=== PATIENT | female | born 1970 | race Caucasian/White ===

== ENCOUNTER 2017-08-25 20:45 | Emergency (ER) | payer MEDICAID ==
[2017-08-25] MEDS ORDERED: predniSONE 20 MG Tab PO ONE (20:46)
[2017-08-25] MEDS ORDERED: Ketorolac 30 MG/ML SDV IVPUSH ONE (21:05)
[2017-08-25] MEDS ORDERED: methylPREDNISolone Sodium Succinate 125 MG/2 ML SDV IVPUSH ONE (21:05)
--- NOTE | 2017-08-25 21:11 | EDM.PDOC ---
ED HPI GENERAL MEDICAL PROBLEM - General Chief Complaint: Back Pain or Injury Stated Complaint: BACK PAIN Time Seen by Provider: 08/25/17 20:50 Source of Information: Reports: Patient History Limitations: Reports: No Limitations - History of Present Illness INITIAL COMMENTS - FREE TEXT/NARRATIVE: 47 YO WF presents to ER complaining of 5 days of left sided low back pain. Pt reports she has been doing a lot of sitting in the car recently and developed left back and buttock pain. Pt reports pain became worse over the last few days and states she can't sit due to discomfort. Pt states pain now radiates down her left leg. Pt denies any weakness or numbness or saddle parathesias. Pt denies any injury, no fever/chills, no nausea/vomiting and no dysuria or frequency/urgency. Onset Date: 08/21/17 Duration: Day(s): (5) Location: Reports: Back Quality: Reports: Ache Severity: Moderate Improves with: Reports: Rest Worsens with: Reports: Movement Associated Symptoms: Reports: No Other Symptoms - Related Data Allergies Allergy/AdvReac Type Severity Reaction Status Date / Time No Known Allergies Allergy Verified 04/08/15 23:45 Home Meds: Home Meds Cyclobenzaprine [Flexeril] 10 mg PO TID PRN 04/08/15 [History] LORazepam 0.5 mg PO DAILY 04/08/15 [History] Pantoprazole Sodium [Protonix] 40 mg PO DAILY 04/08/15 [History] Venlafaxine [Effexor] 04/09/15 [History] Cyclobenzaprine [Flexeril] 10 mg PO TID PRN #15 tab 08/25/17 [Rx] Hydrocodone/Acetaminophen [Hydrocodon-Acetaminophn 10-325] 1 tab PO Q4H PRN #6 tablet 08/25/17 [Rx] Prednisone [IJD: predniSONE] 20 mg PO WITHBREAKFAST #15 tab 08/25/17 [Rx] Past Medical History Other OB/BYN History: only has one falopian tube Social & Family History - Tobacco Use Smoking Status *Q: Never Smoker - Living Situation & Occupation Living situation: Reports: with Significant Other Occupation: Unemployed ED ROS GENERAL - Review of Systems Review Of Systems: See Below Constitutional: Reports: No Symptoms HEENT: Reports: No Symptoms Respiratory: Reports: No Symptoms Cardiovascular: Reports: No Symptoms Endocrine: Reports: No Symptoms GI/Abdominal: Reports: No Symptoms : Reports: No Symptoms Musculoskeletal: Reports: Back Pain Skin: Reports: No Symptoms Neurological: Reports: No Symptoms Psychiatric: Reports: No Symptoms Hematologic/Lymphatic: Reports: No Symptoms Immunologic: Reports: No Symptoms ED EXAM,LOWER BACK PAIN/INJURY - Physical Exam Exam: See Below Exam Limited By: No Limitations General Appearance: Alert, WD/WN, Mild Distress Throat/Mouth: Normal Inspection, Normal Lips, Normal Teeth, Normal Gums, Normal Oropharynx, Normal Voice, No Airway Compromise Head: Atraumatic, Normocephalic Neck: Normal Inspection, Supple, Non-Tender, Full Range of Motion Respiratory/Chest: No Respiratory Distress, Lungs Clear, Normal Breath Sounds, No Accessory Muscle Use, Chest Non-Tender Cardiovascular: Normal Peripheral Pulses, Regular Rate, Rhythm, No Edema, No Gallop, No JVD, No Murmur, No Rub GI/Abdominal: Normal Bowel Sounds, Soft, Non-Tender, No Organomegaly, No Distention, No Abnormal Bruit, No Mass Back Exam: Muscle Spasm, Paraspinal Tenderness. No: CVA Tenderness (L), CVA Tenderness (R), Vertebral Tenderness Extremities: Normal Inspection, Normal Range of Motion, Non-Tender, No Pedal Edema, Normal Capillary Refill Neurological: Alert, Normal Mood/Affect, Normal Dorsiflexion, CN II-XII Intact, Normal Plantar Flexion, Normal Gait, Normal Reflexes, No Motor/Sensory Deficits , Oriented x 3 Psychiatric: Normal Affect, Normal Mood Skin Exam: Warm, Dry, Intact, Normal Color, No Rash Lymphatic: No Adenopathy Course - Orders/Labs/Meds Orders: Active Orders 24 hr Category Date Time Status Lumbar Spine 2 or 3V [CR] Routine Exams 08/25/17 22:00 Taken Acetaminophen/HYDROcodone [Ariel 325-10 MG] Med 08/25/17 21:18 Ordered 1 tab PO Q4H PRN Diazepam [Valium] Med 08/25/17 21:45 Once 5 mg IVPUSH ONETIME ONE predniSONE Med 08/26/17 08:00 Ordered 20 mg PO WITHBREAKFAST Medication Orders Hydrocodone Bitart/Acetaminophen (Ariel 325-10 Mg) 1 tab PO Q4H PRN PRN Reason: Pain Prednisone (Prednisone) 20 mg PO WITHBREAKFAST JENNIFER Stop: 08/31/17 08:01 Meds: Medications Generic Name Dose Route Start Last Admin Trade Name Freq PRN Reason Stop Dose Admin Hydrocodone Bitart/Acetaminophen 1 tab 08/25/17 21:18 Ariel 325-10 Mg PO Q4H PRN Pain Prednisone 20 mg 08/26/17 08:00 Prednisone PO 08/31/17 08:01 WITHBREAKFAST JENNIFER Discontinued Medications Generic Name Dose Route Start Last Admin Trade Name Freq PRN Reason Stop Dose Admin Diazepam 5 mg 08/25/17 21:05 08/25/17 21:10 Valium IVPUSH 08/25/17 21:06 5 mg ONETIME ONE Administration Hydromorphone HCl 1 mg 08/25/17 21:33 Dilaudid IVPUSH 08/25/17 21:34 ONETIME ONE Hydromorphone HCl Confirm 08/25/17 21:34 Dilaudid Administered 08/25/17 21:35 Dose 1 mg .ROUTE .STK-MED ONE Ketorolac Tromethamine 30 mg 08/25/17 21:05 08/25/17 21:10 Toradol IVPUSH 08/25/17 21:06 30 mg ONETIME ONE Administration Methylprednisolone Sodium Succinate 125 mg 08/25/17 21:05 08/25/17 21:15 Solu-Medrol IVPUSH 08/25/17 21:06 125 mg ONETIME ONE Administration - Radiology Interpretation Free Text/Narrative:: lumbar spine- NAD Departure - Departure Time of Disposition: 21:45 Disposition: Home, Self-Care 01 Condition: Good Clinical Impression: Sciatica Qualifiers: Laterality: left Qualified Code(s): M54.32 - Sciatica, left side - Discharge Information Prescriptions: Cyclobenzaprine [Flexeril] 10 mg PO TID PRN #15 tab PRN Reason: Muscle Spasm Hydrocodone/Acetaminophen [Hydrocodon-Acetaminophn 10-325] 1 tab PO Q4H PRN #6 tablet PRN Reason: Pain Prednisone [IJD: predniSONE] 20 mg PO WITHBREAKFAST #15 tab Instructions: Sciatica, [id number] Referrals: Kylie Arroyo, PHYSICIAN SCRIBE [Primary Care Provider] - Forms: ED Department Discharge - My Orders Last 24 Hours: My Active Orders 08/25/17 21:18 Acetaminophen/HYDROcodone [Ariel 325-10 MG] 1 tab PO Q4H PRN 03/24/18 21:45 Diazepam [Valium] 5 mg IVPUSH ONETIME ONE 08/25/17 22:00 Lumbar Spine 2 or 3V [CR] Routine 08/26/17 08:00 predniSONE 20 mg PO WITHBREAKFAST - Assessment/Plan Last 24 Hours: My Active Orders 08/25/17 21:18 Acetaminophen/HYDROcodone [Ariel 325-10 MG] 1 tab PO Q4H PRN 08/25/17 21:45 Diazepam [Valium] 5 mg IVPUSH ONETIME ONE 08/25/17 22:00 Lumbar Spine 2 or 3V [CR] Routine 08/26/17 08:00 predniSONE 20 mg PO WITHBREAKFAST Assessment:: 1. acute sciatica Plan: 1. discharge home 2. prednisone 60mg PO QD x 5 days 3. hydrocodone 10/325mg PO Q6 PRN #10 4. flexril 10mg PO TID PRN #15 5. follow up with PCP for further evaluation and treatment 6. return to ER for worsening symptoms
[2017-08-25] MEDS ORDERED: Cyclobenzaprine 10 MG Tab ONE ×2 (21:15→22:05)
[2017-08-25] MEDS ORDERED: Acetaminophen/HYDROcodone 325-10 MG Tab PO PRN (21:18)
[2017-08-25] MEDS ORDERED: HYDROmorphone 1 MG/ML Syringe IVPUSH ONE (21:33)
[2017-08-25] MEDS ORDERED: HYDROmorphone 1 MG/ML Syringe ONE (21:34)
[2017-08-25] MEDS ORDERED: predniSONE 20 MG Tab ONE (21:46)
[2017-08-26 01:59] VITALS: BP 150/74
[2017-08-26] MEDS ORDERED: predniSONE 20 MG Tab PO SCH (08:00)
== END 2017-08-25 22:20 | disposition home or self-care (01) ==
LOC: KA.ED 20:45
DX: M54.32 Sciatica, left side (principal); Z79.899 Other long term (current) drug therapy
CPT/HCPCS: 72100; 96374; 96375; 96376; 99283; A9270-GY; J1170; J1885; J2930; J3360

== ENCOUNTER 2018-12-10 17:43 | Emergency (ER) | payer MEDICAID ==
[2018-12-10] MEDS ORDERED: Sodium Chloride 0.9% 10 ML Syringe FLUSH PRN (18:07)
[2018-12-10] MEDS ORDERED: Metoclopramide 10 MG/2 ML SDV IVPUSH ONE (18:28)
[2018-12-10] MEDS ORDERED: diphenhydrAMINE 50 MG/ML SDV IVPUSH ONE (18:28)
--- NOTE | 2018-12-10 18:47 | EDM.PDOC ---
ED HPI GENERAL MEDICAL PROBLEM - General Chief Complaint: Headache Stated Complaint: HEADACHE Time Seen by Provider: 12/10/18 18:05 Source of Information: Reports: Patient History Limitations: Reports: No Limitations - History of Present Illness INITIAL COMMENTS - FREE TEXT/NARRATIVE: 48 YO WF presents to ER with complaints of intermittent headaches x 1month. Pt reports headaches began as mild in character left sided with associated dizziness, nausea, ataxia and minor visual changes. Pt with history of lupus. Pt was seen by PCP yesterday and had labs drawn- FRANCIS, ESR, CBC, CMP- all WNL. Pt was scheduled for MRI of brain for tomorrow in [place]. Pt called clinic today complaining of SANCHEZ getting worse prompting her to be recommended for ER evaluation. Pt denies any headache history, no history of MS or giant cell arteritis. Duration: Week(s): (4) Location: Reports: Head Quality: Reports: Ache Severity: Moderate Improves with: Reports: None Worsens with: Reports: None Associated Symptoms: Reports: Headaches, Loss of Appetite, Nausea/Vomiting. Denies: Confusion, Fever/Chills, Rash, Seizure, Weakness Treatments SUGARCANE RESEARCH TECHNICIAN: Reports: Acetaminophen, NSAIDS Other Treatments SUGARCANE RESEARCH TECHNICIAN: Toradol 30 IM - Related Data Allergies Allergy/AdvReac Type Severity Reaction Status Date / Time No Known Allergies Allergy Verified 12/10/18 17:51 Home Meds: Home Meds Venlafaxine [Effexor] 150 mg PO DAILY 04/09/15 [History] Gabapentin [Neurontin] 400 mg PO BEDTIME 08/26/17 [History] Levothyroxine Sodium 88 mcg PO DAILY 08/26/17 [History] tiZANidine [Zanaflex] 4 mg PO BEDTIME 08/26/17 [History] Methocarbamol [Robaxin] 500 mg PO Q6HR PRN 12/10/18 [History] Past Medical History HEENT History: Reports: Impaired Vision SAFETY TEACHER History: Reports: Other SAFETY TEACHER History: only has one falopian tube Musculoskeletal History: Reports: Fibromyalgia, Other (See Below) Other Musculoskeletal History: arm fracture Neurological History: Reports: Other (See Below) Other Neuro History: Lupus Psychiatric History: Reports: Anxiety, Depression Endocrine/Metabolic History: Reports: Hypothyroidism Social & Family History - Tobacco Use Smoking Status *Q: Never Smoker Second Hand Smoke Exposure: No - Caffeine Use Caffeine Use: Reports: Soda Other Caffeine Use: Pt reports drinking one diet soda/day - Recreational Drug Use Recreational Drug Use: No - Living Situation & Occupation Living situation: Reports: with Significant Other Occupation: Unemployed ED ROS GENERAL - Review of Systems Review Of Systems: See Below Constitutional: Reports: No Symptoms HEENT: Reports: Vision Change. Denies: Hearing Loss, Vertigo Respiratory: Reports: No Symptoms Cardiovascular: Reports: No Symptoms Endocrine: Reports: No Symptoms GI/Abdominal: Reports: Nausea : Reports: No Symptoms Musculoskeletal: Reports: No Symptoms Skin: Reports: No Symptoms Neurological: Reports: Dizziness, Headache, Tingling. Denies: Confusion, Numbness, Paresthesia, Pre-Existing Deficit, Seizure, Syncope, Trouble Speaking , Difficulty Walking, Weakness, Change in Speech Psychiatric: Reports: No Symptoms Hematologic/Lymphatic: Reports: No Symptoms Immunologic: Reports: No Symptoms - Physical Exam Exam: See Below Exam Limited By: No Limitations General Appearance: Alert, WD/WN, No Apparent Distress Eye Exam: Bilateral Eye: EOMI, PERRL Ears: Normal External Exam, Normal Canal, Hearing Grossly Normal, Normal TMs Nose: Normal Inspection, Normal Mucosa, No Blood Throat/Mouth: Normal Inspection, Normal Lips, Normal Teeth, Normal Gums, Normal Oropharynx, Normal Voice, No Airway Compromise Head Exam: Atraumatic, Normocephalic Neck: Normal Inspection, Supple, Non-Tender, Full Range of Motion Respiratory/Chest: No Respiratory Distress, Lungs Clear, Normal Breath Sounds, No Accessory Muscle Use, Chest Non-Tender Cardiovascular: Normal Peripheral Pulses, Regular Rate, Rhythm, No Edema, No Gallop, No JVD, No Murmur, No Rub GI/Abdominal: Normal Bowel Sounds, Soft, Non-Tender, No Organomegaly, No Distention, No Abnormal Bruit, No Mass Neuro Exam (Abbreviated): Alert, Oriented, CN II-XII Intact, Normal Cognition, Normal Reflexes, No Motor/Sensory Deficits, Abnormal Gait Back Exam: Normal Inspection, Full Range of Motion, NT Extremities: Normal Inspection, Normal Range of Motion, Non-Tender, No Pedal Edema, Normal Capillary Refill Psychiatric: Normal Affect, Normal Mood Skin Exam: Warm, Dry, Intact, Normal Color, No Rash Course - Vital Signs Last Recorded V/S: Last Vital Signs Temp 36.8 C 12/10/18 17:56 Pulse 82 12/10/18 17:56 Resp 16 12/10/18 17:56 BP 140/92 H 12/10/18 17:56 Pulse Ox 95 12/10/18 17:56 - Orders/Labs/Meds Orders: Active Orders 24 hr Category Date Time Status Peripheral IV Care [RC] . DIRECTED Care 12/10/18 18:07 Active Sodium Chloride 0.9% [Saline Flush] Med 12/10/18 18:07 Active 10 ml FLUSH Q8HR PRN Peripheral IV Insertion Adult [OM.PC] Routine Oth 12/10/18 18:07 Ordered Medication Orders Sodium Chloride (Saline Flush) 10 ml FLUSH Q8HR PRN PRN Reason: keep vein open Last Admin: 12/10/18 18:44 Dose: 10 ml Meds: Medications Generic Name Dose Route Start Last Admin Trade Name Freq PRN Reason Stop Dose Admin Sodium Chloride 10 ml 12/10/18 18:07 12/10/18 18:44 Saline Flush FLUSH 10 ml Q8HR PRN Administration keep vein open Discontinued Medications Generic Name Dose Route Start Last Admin Trade Name Freq PRN Reason Stop Dose Admin Diphenhydramine HCl 50 mg 12/10/18 18:28 12/10/18 18:36 Benadryl IVPUSH 12/10/18 18:29 50 mg ONETIME ONE Administration Metoclopramide HCl 10 mg 12/10/18 18:28 12/10/18 18:37 Reglan IVPUSH 12/10/18 18:29 10 mg ONETIME ONE Administration - Radiology Interpretation Free Text/Narrative:: CT Head- NAD; partially empty sella of no clinical significance. Departure - Departure Time of Disposition: 19:21 Disposition: Home, Self-Care 01 Condition: Good Clinical Impression: Headache Qualifiers: Headache type: unspecified Headache chronicity pattern: acute headache Intractability: not intractable Qualified Code(s): R51 - Headache - Discharge Information Instructions: General Headache Without Cause, [id number] Referrals: Kylie Arroyo LEATHER WORKER [Primary Care Provider] - Forms: ED Department Discharge Additional Instructions: 1. discharge home 2. MRI Brain tomorrow 12/11/2018 10:30am 3. follwo up in [facility]- 12/13/2018 for MRI results and possible neuro referral 4. return to ER for worsening symptoms - My Orders Last 24 Hours: My Active Orders 12/10/18 18:07 Peripheral IV Care [RC] . DIRECTED Sodium Chloride 0.9% [Saline Flush] 10 ml FLUSH Q8HR PRN Peripheral IV Insertion Adult [OM.PC] Routine - Assessment/Plan Last 24 Hours: My Active Orders 12/10/18 18:07 Peripheral IV Care [RC] . DIRECTED Sodium Chloride 0.9% [Saline Flush] 10 ml FLUSH Q8HR PRN Peripheral IV Insertion Adult [OM.PC] Routine Assessment:: 1. left sided Headache- improved Plan: 1. discharge home 2. MRI Brain tomorrow 12/11/2018 10:30am 3. follwo up in [facility]- 12/13/2018 for MRI results and possible neuro referral 4. return to ER for worsening symptoms
--- NOTE | 2018-12-10 19:02 | CT ---
[id number] CT/CT Head WO IV EXAM: CT Head WO IV CLINICAL DATA: HEADACHE COMPARISON STUDY: None FINDINGS: No intracranial hemorrhage, extra-axial fluid collection, mass, or acute ischemia. Partially empty sella, uncertain clinical significance or etiology. Findings can be incidental are seen with benign intracranial hypertension. As an isolated finding, finding is most commonly of no clinical significance. No hydrocephalus. Paranasal sinuses and mastoid air cells are clear. IMPRESSION: No acute findings in the brain. Partially empty sella, described above. Yonis Hendricks MD 12/10/18 [id number] Thank you for allowing us to participate in the care of your patient.
[2018-12-10 19:43] VITALS: BP 117/60; PULSE 61
== END 2018-12-10 19:40 | disposition home or self-care (01) ==
LOC: KA.ED 17:43
DX: R51 Headache (principal); F41.9 Anxiety disorder, unspecified; F32.9 Major depressive disorder, single episode, unspecified; E03.9 Hypothyroidism, unspecified; Z79.899 Other long term (current) drug therapy
CPT/HCPCS: 70450; 96374; 96375; 99284; J1200; J2765

== ENCOUNTER 2019-01-14 06:25 | Emergency (ER) | payer MEDICAID ==
[2019-01-14 06:52] VITALS: BP 123/76; PULSE 88
[2019-01-14] MEDS ORDERED: Ketorolac 30 MG/ML SDV IVPUSH ONE (07:05)
[2019-01-14] MEDS ORDERED: Sodium Chloride 0.9% 1,000 ML IV ONE (07:05)
[2019-01-14] MEDS ORDERED: Ondansetron 4 MG/2 ML SDV IVPUSH ONE (07:05)
[2019-01-14] MEDS ORDERED: Sodium Chloride 0.9% 10 ML Syringe FLUSH PRN (07:05)
--- NOTE | 2019-01-14 07:22 | EDM.PDOC ---
ED HPI GENERAL MEDICAL PROBLEM - General Chief Complaint: Abdominal Pain Stated Complaint: right rib/upper abd pain Time Seen by Provider: 01/14/19 06:45 Source of Information: Reports: Patient History Limitations: Reports: No Limitations - History of Present Illness INITIAL COMMENTS - FREE TEXT/NARRATIVE: 48 YO WF presents to ER complaining of RUQ pain which began yesterday. Pt reports pain is constant and worse with deep inspiration. Pt denies shortness of breath or chest pain. Pt reports remote history of cholecystectomy (20+ years ago). Pt denies recent URI- no cough/congestion/fevers/hemoptysis. Pt reports regular bowel movements without increased bowel gas. Pt denies any radiating pain, no rash, dizziness. Onset Date: 01/13/19 Duration: Day(s): (2) Location: Reports: Abdomen Quality: Reports: Pressure, Sharp Severity: Moderate Improves with: Reports: Rest Worsens with: Reports: Breathing, Movement Associated Symptoms: Reports: No Other Symptoms, Nausea/Vomiting Right Upper Abdomen Pain Score (Numeric/FACES): 10 - Related Data Allergies Allergy/AdvReac Type Severity Reaction Status Date / Time No Known Allergies Allergy Verified 12/10/18 17:51 Home Meds: Home Meds Venlafaxine [Effexor] 150 mg PO DAILY 04/09/15 [History] Gabapentin [Neurontin] 400 mg PO BEDTIME 08/26/17 [History] Levothyroxine Sodium 88 mcg PO DAILY 08/26/17 [History] tiZANidine [Zanaflex] 4 mg PO BEDTIME 08/26/17 [History] Methocarbamol [Robaxin] 500 mg PO Q6HR PRN 12/10/18 [History] Cephalexin [Keflex] 500 mg PO Q6HR #40 capsule 01/14/19 [Rx] Pantoprazole Sodium [Protonix] 40 mg PO DAILY 01/14/19 [History] SUMAtriptan [Imitrex] 25 mg PO ASDIRECTED PRN 01/14/19 [History] Simethicone 125 mg PO TID #30 tab.chew 01/14/19 [Rx] Past Medical History HEENT History: Reports: Impaired Vision 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: only has one falopian tube Musculoskeletal History: Reports: Fibromyalgia, Other (See Below) Other Musculoskeletal History: left arm fracture, ORIF Neurological History: Reports: Other (See Below) Other Neuro History: Lupus Psychiatric History: Reports: Anxiety, Depression Endocrine/Metabolic History: Reports: Hypothyroidism - Past Surgical History GI Surgical History: Reports: Cholecystectomy Musculoskeletal Surgical History: Reports: Arthroscopic Knee Social & Family History - Tobacco Use Smoking Status *Q: Former Smoker Used Tobacco, but Quit: Yes Month/Year Tobacco Last Used: "awhile." - Caffeine Use Caffeine Use: Reports: Soda Other Caffeine Use: Pt reports drinking one diet soda/day - Living Situation & Occupation Living situation: Reports: with Significant Other Occupation: Unemployed ED ROS GENERAL - Review of Systems Review Of Systems: See Below Constitutional: Reports: No Symptoms HEENT: Reports: No Symptoms Respiratory: Reports: No Symptoms Cardiovascular: Reports: No Symptoms Endocrine: Reports: No Symptoms GI/Abdominal: Reports: Abdominal Pain, Nausea : Reports: No Symptoms Musculoskeletal: Reports: No Symptoms Skin: Reports: No Symptoms Neurological: Reports: No Symptoms Psychiatric: Reports: No Symptoms Hematologic/Lymphatic: Reports: No Symptoms Immunologic: Reports: No Symptoms ED EXAM, GI/ABD - Physical Exam Exam: See Below Exam Limited By: No Limitations General Appearance: Alert, WD/WN, No Apparent Distress Head: Atraumatic, Normocephalic Neck: Normal Inspection, Supple, Non-Tender, Full Range of Motion Respiratory/Chest: No Respiratory Distress, Lungs Clear, Normal Breath Sounds, No Accessory Muscle Use, Chest Non-Tender Cardiovascular: Normal Peripheral Pulses, Regular Rate, Rhythm, No Edema, No Gallop, No JVD, No Murmur, No Rub GI/Abdominal Exam: Normal Bowel Sounds, Soft, No Organomegaly, No Distention, No Abnormal Bruit, No Mass, Pelvis Stable, Tender (RUQ) Back Exam: Normal Inspection, Full Range of Motion, NT Extremities: Normal Inspection, Normal Range of Motion, Non-Tender, Normal Capillary Refill, No Pedal Edema Neurological: Alert, Oriented, CN II-XII Intact, Normal Cognition, Normal Gait, Normal Reflexes, No Motor/Sensory Deficits Psychiatric: Normal Affect, Normal Mood Skin Exam: Warm, Dry, Intact, Normal Color, No Rash Lymphatic: No Adenopathy Course - Vital Signs Last Recorded V/S: Last Vital Signs Temp 36.7 C 01/14/19 06:30 Pulse 88 01/14/19 06:30 Resp 22 H 01/14/19 06:30 BP 123/76 01/14/19 06:30 Pulse Ox 96 01/14/19 06:30 - Orders/Labs/Meds Orders: Active Orders 24 hr Category Date Time Status Peripheral IV Care [RC] . DIRECTED Care 01/14/19 07:05 Active Sodium Chloride 0.9% [Saline Flush] Med 01/14/19 07:05 Active 10 ml FLUSH Q8HR PRN Peripheral IV Insertion Adult [OM.PC] Routine Oth 01/14/19 07:05 Ordered Medication Orders Sodium Chloride (Saline Flush) 10 ml FLUSH Q8HR PRN PRN Reason: keep vein open Last Admin: 01/14/19 07:36 Dose: 10 ml Labs: Laboratory Tests 01/14/19 01/14/19 01/14/19 Range/Units 07:20 07:20 07:20 WBC 6.10 (5.00-10.00) 10^3/uL RBC 4.78 (3.80-5.50) 10^6/uL Hgb 14.9 (12.0-16.0) g/dL Hct 43.9 (37.0-47.0) % MCV 91.8 (82.0-92.0) fL MCH 31.2 H (27.0-31.0) pg MCHC 33.9 (32.0-36.0) g/dL RDW 13.0 (11.5-14.5) % Plt Count 256 (150-400) 10^3/uL MPV 9.8 (7.4-10.4) fL Immature Gran % (Auto) 0.2 (0.0-5.0) % Neut % (Auto) 42.9 L (50.0-70.0) % Lymph % (Auto) 48.4 H (20.0-40.0) % Murray % (Auto) 6.7 (2.0-8.0) % Eos % (Auto) 1.1 (1.0-3.0) % Baso % (Auto) 0.7 (0.0-1.0) % Immature Gran # (Auto) 0.01 (0.00-0.50) 10^3/uL Neut # (Auto) 2.62 (2.50-7.00) 10^3/uL Lymph # (Auto) 2.95 (1.00-4.00) 10^3/uL Murray # (Auto) 0.41 (0.10-0.80) 10^3/uL Eos # (Auto) 0.07 L (0.10-0.30) 10^3/uL Baso # (Auto) 0.04 (0.00-0.10) 10^3/uL Sodium 138 (136-145) mmol/L Potassium 3.7 (3.3-5.3) mmol/L Chloride 102 (98-115) mmol/L Carbon Dioxide 28.3 (21.0-32.0) mmol/L Anion Gap 11.4 (5-15) mmol/L BUN 13 (6-25) mg/dL Creatinine 1.07 (0.51-1.17) mg/dL Est Cr Clr Drug Dosing 47.19 mL/min Estimated GFR (MDRD) 55 mL/min Glucose 81 (75 - 99) mg/dL Calcium 9.3 (8.7-10.3) mg/dL Total Bilirubin 0.8 (0.2-1.0) mg/dL AST 22 (15-37) U/L ALT 30 (12-78) U/L Alkaline Phosphatase 154 H (46-116) IU/L Total Protein 7.3 (6.4-8.2) g/dL Albumin 3.59 (3.00-4.80) g/dL Lipase 93 (73-393) U/L HCG, Qual Positive H (NEGATIVE) HCG, Quant 10 mIU/mL Specimen Type Urine Color (YELLOW) Urine Appearance (CLEAR) Urine pH (5.0-9.0) Ur Specific Rison (1.005-1.030) Urine Protein (NEGATIVE) mg/dL Urine Glucose (UA) (NEGATIVE) mg/dL Urine Ketones (NEGATIVE) mg/dL Urine Occult Blood (NEGATIVE) Urine Nitrite (NEGATIVE) Urine Bilirubin (NEGATIVE) Urine Urobilinogen (0.2-1.0) E.U./dL Ur Leukocyte Esterase (NEGATIVE) Urine RBC (0-5) /HPF Urine WBC (0-5) /HPF Ur Epithelial Cells /LPF Urine Bacteria (NONE TO FEW) /HPF Urine Mucus (NEGATIVE) /LPF 01/14/19 Range/Units 08:02 WBC (5.00-10.00) 10^3/uL RBC (3.80-5.50) 10^6/uL Hgb (12.0-16.0) g/dL Hct (37.0-47.0) % MCV (82.0-92.0) fL MCH (27.0-31.0) pg MCHC (32.0-36.0) g/dL RDW (11.5-14.5) % Plt Count (150-400) 10^3/uL MPV (7.4-10.4) fL Immature Gran % (Auto) (0.0-5.0) % Neut % (Auto) (50.0-70.0) % Lymph % (Auto) (20.0-40.0) % Murray % (Auto) (2.0-8.0) % Eos % (Auto) (1.0-3.0) % Baso % (Auto) (0.0-1.0) % Immature Gran # (Auto) (0.00-0.50) 10^3/uL Neut # (Auto) (2.50-7.00) 10^3/uL Lymph # (Auto) (1.00-4.00) 10^3/uL Murray # (Auto) (0.10-0.80) 10^3/uL Eos # (Auto) (0.10-0.30) 10^3/uL Baso # (Auto) (0.00-0.10) 10^3/uL Sodium (136-145) mmol/L Potassium (3.3-5.3) mmol/L Chloride (98-115) mmol/L Carbon Dioxide (21.0-32.0) mmol/L Anion Gap (5-15) mmol/L BUN (6-25) mg/dL Creatinine (0.51-1.17) mg/dL Est Cr Clr Drug Dosing mL/min Estimated GFR (MDRD) mL/min Glucose (75 - 99) mg/dL Calcium (8.7-10.3) mg/dL Total Bilirubin (0.2-1.0) mg/dL AST (15-37) U/L ALT (12-78) U/L Alkaline Phosphatase (46-116) IU/L Total Protein (6.4-8.2) g/dL Albumin (3.00-4.80) g/dL Lipase (73-393) U/L HCG, Qual (NEGATIVE) HCG, Quant mIU/mL Specimen Type Urinvoid Urine Color Yellow (YELLOW) Urine Appearance Slightly cloudy H (CLEAR) Urine pH 5.5 (5.0-9.0) Ur Specific Rison 1.025 (1.005-1.030) Urine Protein Negative (NEGATIVE) mg/dL Urine Glucose (UA) Negative (NEGATIVE) mg/dL Urine Ketones Negative (NEGATIVE) mg/dL Urine Occult Blood Negative (NEGATIVE) Urine Nitrite Negative (NEGATIVE) Urine Bilirubin Small H (NEGATIVE) Urine Urobilinogen 1.0 (0.2-1.0) E.U./dL Ur Leukocyte Esterase Small H (NEGATIVE) Urine RBC 0-5 (0-5) /HPF Urine WBC 10-20 H (0-5) /HPF Ur Epithelial Cells Many H /LPF Urine Bacteria Moderate H (NONE TO FEW) /HPF Urine Mucus Moderate H (NEGATIVE) /LPF Meds: Medications Generic Name Dose Route Start Last Admin Trade Name Star PRN Reason Stop Dose Admin Sodium Chloride 10 ml 01/14/19 07:05 01/14/19 07:36 Saline Flush FLUSH 10 ml Q8HR PRN Administration keep vein open Discontinued Medications Generic Name Dose Route Start Last Admin Trade Name Star PRN Reason Stop Dose Admin Sodium Chloride 1,000 mls @ 999 mls/hr 01/14/19 07:05 01/14/19 07:32 Normal Saline IV 01/14/19 08:05 999 mls/hr .BOLUS ONE Administration Ketorolac Tromethamine 30 mg 01/14/19 07:05 01/14/19 07:28 Toradol IVPUSH 01/14/19 07:06 30 mg ONETIME ONE Administration Lorazepam 1 mg 01/14/19 07:57 Ativan IVPUSH 01/14/19 07:58 ONETIME ONE Ondansetron HCl 4 mg 01/14/19 07:05 01/14/19 07:28 Zofran IVPUSH 01/14/19 07:06 4 mg ONETIME ONE Administration - Radiology Interpretation Free Text/Narrative:: AAS- nonspecific bowel gas pattern with lots of stool ; NAD Departure - Departure Time of Disposition: 09:06 Disposition: Home, Self-Care 01 Condition: Good Clinical Impression: Elevated serum hCG Urinary tract infection Qualifiers: Urinary tract infection type: site unspecified Hematuria presence: without hematuria Qualified Code(s): N39.0 - Urinary tract infection, site not specified Constipation Qualifiers: Constipation type: slow transit constipation Qualified Code(s): K59.01 - Slow transit constipation Abdominal pain Qualifiers: Abdominal location: right upper quadrant Qualified Code(s): R10.11 - Right upper quadrant pain - Discharge Information Prescriptions: Cephalexin [Keflex] 500 mg PO Q6HR #40 capsule Simethicone 125 mg PO TID #30 tab.chew Instructions: Urinary Tract Infection, Adult, [id number], Constipation, Adult Referrals: Meghana Cantu MD [Physician] - Forms: ED Department Discharge, ED Return to Work/School Form Additional Instructions: 1. discharge home 2. follow up in [address] [facility] for repeat HCG- 01/15/2019 3. follow up in clinic 01/15/2019 in [place] for further evaluation and treatment 4. keflex 500mg PO Q6 x 10 days for UTI 5. simethicone 125mg TID PRN gas pain 6. magnesium citrate as needed for constipation 7. return to ER for worsening symptoms - My Orders Last 24 Hours: My Active Orders 01/14/19 07:05 Peripheral IV Care [RC] . DIRECTED Sodium Chloride 0.9% [Saline Flush] 10 ml FLUSH Q8HR PRN Peripheral IV Insertion Adult [OM.PC] Routine - Assessment/Plan Last 24 Hours: My Active Orders 01/14/19 07:05 Peripheral IV Care [RC] . DIRECTED Sodium Chloride 0.9% [Saline Flush] 10 ml FLUSH Q8HR PRN Peripheral IV Insertion Adult [OM.PC] Routine Assessment:: 1. UTI 2. constipation 3. borderline HCG elevation Plan: 1. discharge home 2. follow up in [address] [facility] for repeat HCG- 01/15/2019 3. follow up in clinic 01/15/2019 in [place] for further evaluation and treatment 4. keflex 500mg PO Q6 x 10 days for UTI 5. simethicone 125mg TID PRN gas pain 6. magnesium citrate as needed for constipation 7. return to ER for worsening symptoms
[2019-01-14] MEDS ORDERED: LORazepam 2 MG/ML SDV IVPUSH ONE (07:57)
[2019-01-14 08:02] LABS: ANION GAP 11.4 mmol/L (5-15); CHLORIDE,CL 102 mmol/L (98-115); SODIUM,NA 138 mmol/L (136-145)
--- NOTE | 2019-01-14 08:09 | CR ---
[id number] RAD/RAD Abdomen 3V Exam: RAD Abdomen 3V Clinical Data: RIGHT LOWER RIB PAIN COMPARISON: RELATION IS MADE WITH THE EXAM OF JANUARY 11, 2018. FINDINGS: No fracture is seen. The lungs are clear. There is no pneumothorax. There is no bowel obstruction. There is no free air. The cardiomediastinal contour is normal IMPRESSION: NO ACUTE FRACTURE IDENTIFIED. NO PNEUMOTHORAX. NO ACUTE ABNORMALITY OF THE ABDOMEN EITHER. Carl Nolasco MD 01/14/19 0808 Thank you for allowing us to participate in the care of your patient.
== END 2019-01-14 09:15 | disposition home or self-care (01) ==
LOC: KA.ED 06:25
DX: K59.01 Slow transit constipation (principal); N39.0 Urinary tract infection, site not specified; R89.1 Abnormal level of hormones in specimens from other organs, systems and tissues; F32.9 Major depressive disorder, single episode, unspecified; F41.9 Anxiety disorder, unspecified; E03.9 Hypothyroidism, unspecified; Z87.891 Personal history of nicotine dependence; Z79.899 Other long term (current) drug therapy; Z79.891 Long term (current) use of opiate analgesic; Z79.890 Hormone replacement therapy
CPT/HCPCS: 74022; 80053; 81001; 83690; 84702; 84703; 85025; 87086; 96361; 96374; 96375; 99284; J1885; J2405; J7030

== ENCOUNTER 2019-12-20 08:04 | Emergency (ER) | payer MEDICAID ==
[2019-12-20 08:19] VITALS: BP 116/68; PULSE 60
--- NOTE | 2019-12-20 08:22 | EDM.PDOC ---
ED HPI GENERAL MEDICAL PROBLEM - General Chief Complaint: General Stated Complaint: back pain Time Seen by Provider: 12/20/19 08:18 Source of Information: Reports: Patient, Old Records, RN Notes Reviewed History Limitations: Reports: No Limitations - History of Present Illness INITIAL COMMENTS - FREE TEXT/NARRATIVE: Ongoing back pain for approximately a month worsening. Underwent MRI this week showing disc bulge and disc herniation. Has been treated with Toradol injections x2 this past week. Initial injection was very beneficial, allowing her to work the entire next day. Second injection was less efficacious but still provided some benefit. She has been getting progressively worse, unable to sit, or find a comfortable position. Continued discomfort despite medicat ion. 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, Other Medication(s) Lower Back Pain Score (Numeric/FACES): 40 - Related Data Allergies Allergy/AdvReac Type Severity Reaction Status Date / Time No Known Allergies Allergy Verified 12/20/19 08:07 Home Meds: Home Meds Venlafaxine [Effexor] 150 mg PO DAILY 04/09/15 [History] Gabapentin [Neurontin] 400 mg PO BEDTIME 08/26/17 [History] Levothyroxine Sodium 88 mcg PO DAILY 08/26/17 [History] tiZANidine [Zanaflex] 4 mg PO BEDTIME 08/26/17 [History] Methocarbamol [Robaxin] 500 mg PO Q6HR PRN 12/10/18 [History] Pantoprazole Sodium [Protonix] 40 mg PO DAILY 01/14/19 [History] SUMAtriptan [Imitrex] 25 mg PO ASDIRECTED PRN 01/14/19 [History] Simethicone 125 mg PO TID #30 tab.chew 01/14/19 [Rx] Propranolol [Inderal] 20 mg PO DAILY 12/20/19 [History] methylPREDNISolone [Medrol] 20 mg PO DAILY 12/20/19 [History] Past Medical History HEENT History: Reports: Impaired Vision 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: only has one 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 tube Musculoskeletal History: Reports: Back Pain, Chronic, Fibromyalgia, Other (See Below) Other Musculoskeletal History: left arm fracture, ORIF Neurological History: Reports: Other (See Below) Other Neuro History: Lupus Psychiatric History: Reports: Anxiety, Depression Endocrine/Metabolic History: Reports: Hypothyroidism - Past Surgical History GI Surgical History: Reports: Cholecystectomy Other Endocrine Surgeries/Procedures: Thyroid ablation Musculoskeletal Surgical History: Reports: Arthroscopic Knee - Past Imaging History Past Imaging History: Reports: CAT Scan, MRI Social & Family History - Tobacco Use Smoking Status *Q: Never Smoker - Caffeine Use Caffeine Use: Reports: Soda Other Caffeine Use: Pt reports drinking one diet soda/day - Recreational Drug Use Recreational Drug Use: No - Living Situation & Occupation Living situation: Reports: with Significant Other Occupation: Unemployed ED ROS GENERAL - Review of Systems Review Of Systems: Comprehensive ROS is negative, except as noted in HPI. ED EXAM, GENERAL - Physical Exam Exam: See Below Free Text/Narrative:: Alert oriented x3 in mild distress. HEENT is negative discharge or deformity. She exhibits no respiratory distress. Thorax is clear with no wheezes no crackles. Cardiac is S1-S2 with no noted murmur. Tenderness is noted to the L4-5 region to palpation. Tenderness is noted to the right buttock. This radiates in a typical radiculopathy sciatic pattern. There is no noted foot drop, no significant weakness to the lower extremities. Sensation is intact. Course - Vital Signs Last Recorded V/S: Last Vital Signs Temp 36.2 C 12/20/19 08:16 Pulse 60 12/20/19 08:16 Resp 16 12/20/19 08:16 BP 116/68 12/20/19 08:16 Pulse Ox 96 12/20/19 08:16 - Orders/Labs/Meds Meds: Medications Discontinued Medications Generic Name Dose Route Start Last Admin Trade Name Freq PRN Reason Stop Dose Admin Ketorolac Tromethamine 60 mg 12/20/19 08:37 Toradol IM 12/20/19 08:38 ONETIME ONE Departure - Departure Time of Disposition: 08:47 Disposition: Home, Self-Care 01 Condition: Good, Fair Clinical Impression: Radiculopathy due to lumbar intervertebral disc disorder - Discharge Information *PRESCRIPTION DRUG MONITORING PROGRAM REVIEWED*: Not Applicable *COPY OF PRESCRIPTION DRUG MONITORING REPORT IN PATIENT SALMA: Not Applicable Instructions: Degenerative Disk Disease, Herniated Disk, [id number] Referrals: Long,Aurelia M, FORMING YARDAGE CONTROL OPERATOR [Primary Care Provider] - Forms: ED Department Discharge Additional Instructions: Continue your medications as directed. If your symptoms do not start showing some improvement with the steroid treatment, or worsen, you need to contact your clinic to see about your injection appointment options. Follow-up as directed. Sepsis Event Note (ED) - Focused Exam Vital Signs: Vital Signs Temp Pulse Resp BP Pulse Ox 12/20/19 08:16 36.2 C 60 16 116/68 96 - Problem List & Annotations (1) Degenerative disc disease SNOMED Code(s): 85018306 Code(s): VMX5375 - Status: Chronic Priority: High Qualifiers: Spinal region: lumbar Qualified Code(s): M51.36 - Other intervertebral disc degeneration, lumbar region (2) Radiculopathy due to lumbar intervertebral disc disorder SNOMED Code(s): 030662437659929 Code(s): M51.16 - INTERVERTEBRAL DISC DISORDERS W RADICULOPATHY, LUMBAR REGION Status: Acute (3) Back pain SNOMED Code(s): 067302225 Code(s): M54.9 - DORSALGIA, UNSPECIFIED Status: Acute Qualifiers: Back pain location: low back pain Chronicity: acute Back pain laterality: unspecified Sciatica presence: without sciatica Qualified Code(s): M54.5 - Low back pain - Problem List Review Problem List Initiated/Reviewed/Updated: Yes - Assessment/Plan Plan: Continue your medications as directed. If your symptoms do not start showing some improvement with the steroid treatment, or worsen, you need to contact your clinic to see about your injection appointment options. Follow-up as directed.
[2019-12-20] MEDS: Ketorolac 60 MG/2 ML SDV IM ONE (08:43)
== END 2019-12-20 09:00 | disposition home or self-care (01) ==
LOC: KA.ED 08:04
DX: M51.16 Intervertebral disc disorders with radiculopathy, lumbar region (principal); F41.9 Anxiety disorder, unspecified; F32.9 Major depressive disorder, single episode, unspecified; E03.9 Hypothyroidism, unspecified; Z79.899 Other long term (current) drug therapy
CPT/HCPCS: 96372; 99283; J1885

== ENCOUNTER 2020-06-22 12:40 | Emergency (ER) | payer MEDICAID ==
[2020-06-22 12:52] VITALS: BP 137/92; PULSE 65
--- NOTE | 2020-06-22 12:53 | EDM.PDOC ---
ED HPI GENERAL MEDICAL PROBLEM - General Chief Complaint: Back Pain or Injury Stated Complaint: DIZZINESS,LIGHT HEADED Time Seen by Provider: 06/22/20 12:52 Source of Information: Reports: Patient History Limitations: Reports: No Limitations - History of Present Illness INITIAL COMMENTS - FREE TEXT/NARRATIVE: Emily, 49-year-old female, slipped on the ice today, with sudden fall striking her back and her head posteriorly. States she struck so hard her glasses flew off her face. She stated she was unable to see temporarily, but is completely unsure of loss of consciousness but states "most likely I did". Has had mild nausea with 2 emesis since then. Stated she underwent Toradol injection yesterday for her chronic back issues and was feeling well today at the time of the fall. The fall did exacerbate her back pain as well as cause headache and concussive type symptoms. She denies any other risks or factors contributing to COVID- pandemic. Onset: Today, Sudden Duration: Minutes:, Constant, Getting Worse Location: Reports: Head, Back Quality: Reports: Pressure, Sharp, Stabbing Severity: Severe Improves with: Reports: None Worsens with: Reports: Movement generalized Pain Score (Numeric/FACES): 8 - Related Data Allergies Allergy/AdvReac Type Severity Reaction Status Date / Time No Known Allergies Allergy Verified 06/22/20 12:55 Home Meds: Home Meds Venlafaxine [Effexor] 150 mg PO DAILY 04/09/15 [History] Gabapentin [Neurontin] 400 mg PO BEDTIME 08/26/17 [History] Levothyroxine Sodium 88 mcg PO DAILY 08/26/17 [History] tiZANidine [Zanaflex] 4 mg PO BEDTIME 08/26/17 [History] Methocarbamol [Robaxin] 500 mg PO Q6HR PRN 12/10/18 [History] Pantoprazole Sodium [Protonix] 40 mg PO DAILY 01/14/19 [History] SUMAtriptan [Imitrex] 25 mg PO ASDIRECTED PRN 01/14/19 [History] Simethicone 125 mg PO TID #30 tab.chew 01/14/19 [Rx] Propranolol [Inderal] 20 mg PO DAILY 12/20/19 [History] methylPREDNISolone [Medrol] 20 mg PO DAILY 12/20/19 [History] Cetirizine [ZyrTEC] 10 mg PO DAILY 06/22/20 [History] DULoxetine [Cymbalta] 60 mg PO DAILY 06/22/20 [History] Ondansetron [Zofran ODT] 4 mg PO Q6H PRN 5 Days #20 tab.dis 06/22/20 [Rx] Ondansetron [Zofran ODT] 4 mg PO Q8HR PRN 06/22/20 [History] busPIRone [Buspar] 15 mg PO BID 06/22/20 [History] hydrOXYzine pamoate [Vistaril] 25 mg PO Q6HR PRN 06/22/20 [History] Past Medical History HEENT History: Reports: Impaired Vision [employer] 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: only has one falopian tube Musculoskeletal History: Reports: Back Pain, Chronic, Fibromyalgia, Other (See Below) Other Musculoskeletal History: left arm fracture, ORIF Neurological History: Reports: Other (See Below) Other Neuro History: Lupus Psychiatric History: Reports: Anxiety, Depression Endocrine/Metabolic History: Reports: Hypothyroidism - Past Surgical History GI Surgical History: Reports: Cholecystectomy Other Endocrine Surgeries/Procedures: Thyroid ablation Musculoskeletal Surgical History: Reports: Arthroscopic Knee - Past Imaging History Past Imaging History: Reports: CAT Scan, MRI Social & Family History - Family History Family Medical History: No Pertinent Family History - Caffeine Use Caffeine Use: Reports: Soda Other Caffeine Use: Pt reports drinking one diet soda/day - Living Situation & Occupation Living situation: Reports: with Significant Other Occupation: Unemployed ED ROS GENERAL - Review of Systems Review Of Systems: Comprehensive ROS is negative, except as noted in HPI. ED EXAM, GENERAL - Physical Exam Exam: See Below Free Text/Narrative:: Alert, oriented, conversing with me with mild distress. There is mild swelling in the superior occipital region with no evidence of laceration, abrasion, nor crepitus. PERRLA no icterus no injection limited nondilated funduscopy is benign. Auditory canals and tympanic membranes are negative for any evidence of trauma, negative for hemotympanum. Neck is taut musculature, with no tenderness to the spinal process. Thorax he is clear I do not appreciate any wheezes nor crackles. Cardiac is regular, no appreciated murmur. Abdomen soft. Tenderness to the musculature as well as the lower thoracic and lumbar spinal process region likely exacerbation of her chronic issue. There is no deficit to the lower extremities with skin warm and dry motion intact. She is somewhat unstable with her gait, but is able to ambulate into the department from the room to the bathroom and return to the examination room with assistance. No deficit is noted to hands, arms, nor lower extremities to motion nor strength. Course - Vital Signs Last Recorded V/S: Last Vital Signs Temp 98.1 F 06/22/20 12:44 Pulse 65 06/22/20 12:44 Resp 16 06/22/20 12:44 BP 137/92 H 06/22/20 12:44 Pulse Ox 94 L 06/22/20 12:44 - Orders/Labs/Meds Meds: Medications Discontinued Medications Generic Name Dose Route Start Last Admin Trade Name Star PRN Reason Stop Dose Admin Ketorolac Tromethamine 60 mg 06/22/20 12:57 06/22/20 13:14 Toradol IM 06/22/20 12:58 60 mg ONETIME ONE Administration Ondansetron HCl 4 mg 06/22/20 12:58 06/22/20 13:14 Zofran Odt PO 06/22/20 12:59 4 mg ONETIME ONE Administration - Re-Assessments/Exams Free Text/Narrative Re-Assessment/Exam: 06/22/20 13:37 Resting comfortably at this time, complaining of continued headache as well as back pain. She is using her smart phone with no difficulties as I entered the room. Explained that concussion syndrome is a very degrees and resolution time. 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 He acknowledges witnessing that. I explained to both of them that that was a alleged concussion in a healthy young athlete, wearing full protection including a helmet. There is no measurement tool for the common public to know how severe it is and its based on symptoms if scanning of the brain returns negative. Departure - Departure Time of Disposition: 13:49 Disposition: Home, Self-Care 01 Condition: Good Clinical Impression: Concussion Qualifiers: Encounter type: initial encounter Back pain Qualifiers: Back pain location: low back pain Chronicity: acute Back pain laterality: unspecified Sciatica presence: without sciatica Qualified Code(s): M54.5 - Low back pain - Discharge Information *PRESCRIPTION DRUG MONITORING PROGRAM REVIEWED*: Not Applicable *COPY OF PRESCRIPTION DRUG MONITORING REPORT IN PATIENT SALMA: Not Applicable Prescriptions: Ondansetron [Zofran ODT] 4 mg PO Q6H PRN 5 Days #20 tab.dis PRN Reason: Nausea Instructions: Concussion, Adult, [id number] Referrals: Aurelia Arroyo, GIFTED TEACHER [Primary Care Provider] - Forms: ED Department Discharge, ED Return to Work/School Form Additional Instructions: You need to go home and rest, quiet, cool, dark room. You need to avoid bright lights, flashing lights, computer screen, as well as television for a minimum of the next 24 hours. This includes the use of smart phones and any electronic devices. You need to continue all your medications as directed. Make sure you sip on fluid do not get dehydrated but limit your eating and drinking as to not cause further nausea. You need to call your clinic for a follow-up evaluation this week, either the or Sunday the . This incident will make your chronic aches and pains flareup, and need to be discussed with your provider in the event you require change in your treatment regimen. A new prescription for Zofran is sent to your pharmacy for nausea comfort as needed. Sepsis Event Note (ED) - Evaluation Sepsis Screening Result: No Definite Risk - Focused Exam Vital Signs: Vital Signs Temp Pulse Resp BP Pulse Ox 06/22/20 12:44 98.1 F 65 16 137/92 H 94 L - Problem List & Annotations (1) Fall due to ice or snow SNOMED Code(s): 875208789 Code(s): W00.9XXA - UNSPECIFIED FALL DUE TO ICE AND SNOW, INITIAL ENCOUNTER Status: Acute Priority: Medium Current Visit: Yes Qualifiers: Encounter type: initial encounter Qualified Code(s): W00.9XXA - Unspecified fall due to ice and snow, initial encounter (2) Concussion SNOMED Code(s): 923773595 Code(s): S06.0X9A - CONCUSSION W LOSS OF CONSCIOUSNESS OF UNSP DURATION, INIT Status: Acute Priority: High Current Visit: Yes Qualifiers: Encounter type: initial encounter (3) Back pain SNOMED Code(s): 249083694 Code(s): M54.9 - DORSALGIA, UNSPECIFIED Status: Acute Current Visit: Yes Qualifiers: Back pain location: low back pain Chronicity: acute Back pain laterality: unspecified Sciatica presence: without sciatica Qualified Code(s): M54.5 - Low back pain (4) Headache SNOMED Code(s): 31390606 Code(s): R51 - HEADACHE * DO NOT USE * Status: Acute Priority: Medium Current Visit: No Qualifiers: Headache type: post-traumatic Headache chronicity pattern: acute headache Intractability: not intractable Qualified Code(s): G44.319 - Acute post- traumatic headache, not intractable - Problem List Review Problem List Initiated/Reviewed/Updated: Yes - Assessment/Plan Plan: You need to go home and rest, quiet, cool, dark room. You need to avoid bright lights, flashing lights, computer screen, as well as te levision for a minimum of the next 24 hours. This includes the use of smart phones and any electronic devices. You need to continue all your medications as directed. Make sure you sip on fluid do not get dehydrated but limit your eating and drinking as to not cause further nausea. You need to call your clinic for a follow-up evaluation this week, either the or Sunday the . This incident will make your chronic aches and pains flareup, and need to be discussed with your provider in the event you require change in your treatment regimen. A new prescription for Zofran is sent to your pharmacy for nausea comfort as needed.
[2020-06-22] MEDS: Ketorolac 60 MG/2 ML SDV IM ONE (13:14)
[2020-06-22] MEDS: Ondansetron 4 MG Tab.DIS PO ONE (13:14)
--- NOTE | 2020-06-22 13:39 | CT ---
[id number] CT/CT Head WO IV EXAM: CT Head WO IV CLINICAL DATA: TRAUMA COMPARISON: CORRELATION IS MADE WITH DECEMBER 10, 2018 FINDINGS: Soft tissue swelling is seen in the left parietal region There is no mass or mass effect. There is no hemorrhage or hydrocephalus. There are no extra-axial fluid collections. There are no sites of abnormal attenuation. IMPRESSION: NO PLAIN CT EVIDENCE OF ACUTE INTRACRANIAL PROCESS. Carl Nolasco MD 06/22/20 [id number] Thank you for allowing us to participate in the care of your patient.
== END 2020-06-22 14:00 | disposition home or self-care (01) ==
LOC: KA.ED 12:40
DX: S06.0X9A Concussion with loss of consciousness of unspecified duration, initial encounter (principal); M54.5 Low back pain; E03.9 Hypothyroidism, unspecified; Z79.899 Other long term (current) drug therapy; W00.0XXA Fall on same level due to ice and snow, initial encounter
CPT/HCPCS: 70450; 96372; 99283; 99284-25; A9270-GY; J1885

== ENCOUNTER 2021-10-05 11:56 | Emergency (ER) | payer OTHER, MEDICAID ==
[2021-10-05 12:15] VITALS: BP 155/80; PULSE 64
== END 2021-10-05 13:45 | disposition home or self-care (01) ==
LOC: KA.ED 11:56
DX: S93.402A Sprain of unspecified ligament of left ankle, initial encounter (principal); E03.9 Hypothyroidism, unspecified; Z79.899 Other long term (current) drug therapy; W18.41XA Slipping, tripping and stumbling without falling due to stepping on object, initial encounter; X50.1XXA Overexertion from prolonged static or awkward postures, initial encounter
CPT/HCPCS: 73610-LT; 73630-LT; 99283; 99283-25

== ENCOUNTER 2022-05-13 13:41 | Emergency (ER) | payer MEDICAID ==
[2022-05-13] MEDS ORDERED: Naloxone 0.4 MG/ML SDV ONE (13:51)
[2022-05-13] MEDS ORDERED: Naloxone 0.4 MG/ML SDV IVPUSH ONE (13:56)
[2022-05-13 14:17] LABS: ANION GAP 13.4 mmol/L (5-15); CHLORIDE,CL 103 mmol/L (98-107); SODIUM,NA 139 mmol/L (136-145)
[2022-05-13 14:20] LABS: ESTIMATED GFR 59 mL/min (>=60)
[2022-05-13 14:26] LABS: BARBITURATE SCREEN,URINE NEGATIVE (NEGATIVE); BENZODIAZEPINES SCREEN,URINE NEGATIVE (NEGATIVE); TCA SCREEN,URINE NEGATIVE (NEGATIVE); THC SCREEN,URINE 50 NG/ML NEGATIVE (NEGATIVE)
[2022-05-13] MEDS ORDERED: Ondansetron 4 MG/2 ML SDV ONE (14:29)
[2022-05-13] MEDS ORDERED: Ondansetron 4 MG/2 ML SDV IVPUSH ONE (14:29)
[2022-05-13 14:46] LABS: ACETAMINOPHEN < 0.0 ug/mL (10.0-30.0)
[2022-05-13] MEDS: Sodium Chloride 0.9% 1,000 ML IV ONE ×2 (14:47→14:51)
[2022-05-13] MEDS ORDERED: Sodium Chloride 0.9% 1,000 ML IV ONE (14:49)
== END 2022-05-13 15:34 ==
LOC: KA.ED 13:41
DX: T48.5X1A Poisoning by other anti-common-cold drugs, accidental (unintentional), initial encounter (principal); R00.1 Bradycardia, unspecified; R53.83 Other fatigue; Z79.899 Other long term (current) drug therapy; Z90.49 Acquired absence of other specified parts of digestive tract
CPT/HCPCS: 70450; 80053; 80143; 80179; 80305-QW; 80307; 83735; 85025; 93005; 96361; 96374; 96375; 99284; 99285-25; J2310; J2405; J7030

== ENCOUNTER 2022-09-19 13:55 | Emergency (ER) | payer MEDICAID ==
[2022-09-19 14:10] VITALS: BP 119/78; PULSE 66
[2022-09-19] MEDS ORDERED: methylPREDNISolone Sodium Succinate 125 MG/2 ML SDV IM ONE (14:34)
[2022-09-19] MEDS ORDERED: Ketorolac 30 MG/ML SDV IM ONE (14:34)
== END 2022-09-19 15:00 | disposition home or self-care (01) ==
LOC: KA.ED 13:55
DX: M54.50 Low back pain, unspecified (principal); G89.29 Other chronic pain; E03.9 Hypothyroidism, unspecified; Z79.899 Other long term (current) drug therapy
CPT/HCPCS: 96372; 99283; J1885; J2930

== ENCOUNTER 2023-01-17 13:09 | Emergency (ER) | payer BC, MEDICAID ==
[2023-01-17] MEDS ORDERED: methylPREDNISolone Sodium Succinate 125 MG/2 ML SDV IM ONE (13:46)
[2023-01-17] MEDS ORDERED: Ketorolac 30 MG/ML SDV IM ONE (13:46)
[2023-01-17 14:56] VITALS: BP 140/80; PULSE 73
== END 2023-01-17 14:03 | disposition home or self-care (01) ==
LOC: KA.ED 13:09
DX: M54.32 Sciatica, left side (principal); M54.31 Sciatica, right side
CPT/HCPCS: 96372; 99283; 99284; J1885; J2930

== ENCOUNTER 2024-01-30 11:54 | Emergency (ER) | payer BC ==
[2024-01-30 12:25] LABS: BASOPHILS ABSOLUTE AUTO 0.02 10^3/uL (0.00-0.10); BASOPHILS PERCENT AUTO 0.1 % (0.0-1.0); EOSINOPHILS ABSOLUTE AUTO 0.03 10^3/uL (0.10-0.30); EOSINOPHILS PERCENT AUTO 0.2 % (1.0-3.0); HEMATOCRIT 40.7 % (37.0-47.0); HEMOGLOBIN 13.5 g/dL (12.0-16.0); IMMATURE GRAN ABSOLUTE AUTO 0.05 10^3/uL (0.00-0.50); IMMATURE GRAN PERCENT AUTO 0.3 % (0.0-5.0); MEAN CORPUSCULAR HEMOGLOBIN 30.3 pg (27.0-31.0); MEAN CORPUSCULAR HGB CONC 33.2 g/dL (32.0-36.0); MEAN CORPUSCULAR VOLUME 91.5 fL (82.0-92.0); MONOCYTES ABSOLUTE AUTO 0.93 10^3/uL (0.10-0.80); MONOCYTES PERCENT AUTO 6.4 % (2.0-8.0); NEUTROPHILS ABSOLUTE AUTO 7.96 10^3/uL (2.50-7.00); PLATELET COUNT,PLT 302 10^3/uL (150-400); RED BLOOD CELL COUNT 4.45 10^6/uL (3.80-5.50); RED CELL DISTRIBUTION WIDTH 13.7 % (11.5-14.5); WHITE BLOOD CELL COUNT,WBC 14.49 10^3/uL (5.00-10.00)
[2024-01-30 12:30] VITALS: BP 118/77; PULSE 84
[2024-01-30 12:38] LABS: ALANINE AMINOTRANSFERASE,ALT 36 U/L (14-63); ALBUMIN 3.12 g/dL (3.40-5.00); ALKALINE PHOSPHATASE 194 U/L (46-116); ANION GAP 13.4 mmol/L (5-15); ASPARTATE AMNIOTRANSFERASE,AST 40 U/L (15-37); BILIRUBIN TOTAL 0.5 mg/dL (0.2-1.0); BLOOD UREA NITROGEN,BUN 14 mg/dL (7-18); CALCIUM 9.3 mg/dL (8.7-10.3); CARBON DIOXIDE,CO2 28.6 mmol/L (21.0-32.0); CHLORIDE,CL 103 mmol/L (98-107); CREATININE 1.18 mg/dL (0.51-1.17); GLUCOSE RANDOM 105 mg/dL (70-140); PROTEIN TOTAL,TP 6.9 g/dL (6.4-8.2); SODIUM,NA 142 mmol/L (136-145)
[2024-01-30 12:46] LABS: ESTIMATED GFR 56 mL/min (>=60)
[2024-01-30 12:49] LABS: B-TYPE NATRIURETIC PEPTIDE,BNP 32 pg/mL (0-100)
[2024-01-30] MEDS: Albuterol/Ipratropium 3.0-0.5 MG/3 ML Neb Soln NEB ONE (13:15)
[2024-01-30] MEDS: Sodium Chloride 0.9% 1,000 ML IV ONE (13:17)
[2024-01-30] MEDS: Codeine/guaiFENesin 10-100 MG/5 ML Syrup 5 ML Cup PO ONE (13:28)
[2024-01-30 13:53] LABS: INFLUENZA A NAA NEGATIVE (NEGATIVE); INFLUENZA B NAA NEGATIVE (NEGATIVE); RESPIRATORY SYNCYTIAL VIR NAA NEGATIVE (NEGATIVE)
[2024-01-30 13:55] LABS: CORONAVIRUS COVID-19 NAA NEGATIVE (NEGATIVE)
== END 2024-01-30 15:05 | disposition home or self-care (01) ==
LOC: KA.ED 11:54
DX: J20.9 Acute bronchitis, unspecified (principal); E03.9 Hypothyroidism, unspecified; Z79.890 Hormone replacement therapy; Z79.899 Other long term (current) drug therapy; Z90.49 Acquired absence of other specified parts of digestive tract
CPT/HCPCS: 0241U; 71045; 80053; 83605; 83880; 85025; 94640; 96360; 99283; 99285-25; A9270-GY; J7030; J7620-GY

== ENCOUNTER 2024-09-13 09:00 | Emergency (ER) | payer BC ==
[2024-09-13 09:25] LABS: BASOPHILS ABSOLUTE AUTO 0.02 10^3/uL (0.00-0.10); BASOPHILS PERCENT AUTO 0.2 % (0.0-1.0); HEMATOCRIT 44.6 % (37.0-47.0); HEMOGLOBIN 14.6 g/dL (12.0-16.0); IMMATURE GRAN ABSOLUTE AUTO 0.01 10^3/uL (0.00-0.04); IMMATURE GRAN PERCENT AUTO 0.1 % (0.0-0.4); LYMPHOCYTES ABSOLUTE AUTO 1.81 10^3/uL (1.00-4.00); LYMPHOCYTES PERCENT AUTO 22.4 % (20.0-40.0); MEAN CORPUSCULAR HEMOGLOBIN 30.2 pg (27.0-31.0); MEAN CORPUSCULAR HGB CONC 32.7 g/dL (32.0-36.0); MEAN CORPUSCULAR VOLUME 92.3 fL (82.0-92.0); MEAN PLATELET VOLUME 9.9 fL (7.4-10.4); MONOCYTES ABSOLUTE AUTO 0.76 10^3/uL (0.10-0.80); MONOCYTES PERCENT AUTO 9.4 % (2.0-8.0); NEUTROPHILS ABSOLUTE AUTO 5.49 10^3/uL (2.50-7.00); NEUTROPHILS PERCENT AUTO 67.9 % (50.0-70.0); PLATELET COUNT,PLT 246 10^3/uL (150-400); RED BLOOD CELL COUNT 4.83 10^6/uL (3.80-5.50); RED CELL DISTRIBUTION WIDTH 14.1 % (11.5-14.5); WHITE BLOOD CELL COUNT,WBC 8.09 10^3/uL (5.00-10.00)
[2024-09-13 09:40] LABS: ALBUMIN 3.46 g/dL (3.40-5.00); ANION GAP 13.8 mmol/L (5-15); BILIRUBIN TOTAL 0.6 mg/dL (0.2-1.0); CALCIUM 9.1 mg/dL (8.7-10.3); CREATININE 1.45 mg/dL (0.51-1.17); EST CRCL DRUG DOSING (CG) 32.6 mL/min; POTASSIUM,K 3.8 mmol/L (3.5-5.1); PROTEIN TOTAL,TP 7.2 g/dL (6.4-8.2)
[2024-09-13] MEDS: Acetaminophen 500 MG Tab PO ONE (09:57)
[2024-09-13] MEDS: traMADol 50 MG Tab PO ONE (09:57)
[2024-09-13 10:45] VITALS: BP 123/73; PULSE 75
== END 2024-09-13 10:45 | disposition home or self-care (01) ==
LOC: KA.ED 09:00
DX: U07.1 COVID-19 (principal); E03.9 Hypothyroidism, unspecified; Z90.49 Acquired absence of other specified parts of digestive tract; Z91.048 Other nonmedicinal substance allergy status; Z79.51 Long term (current) use of inhaled steroids; Z79.890 Hormone replacement therapy; Z79.899 Other long term (current) drug therapy
CPT/HCPCS: 36415; 80053; 85025; 87428; 87651; 99284; A9270